=== PATIENT | male | born 1950 | race Caucasian/White ===

== ENCOUNTER 2017-04-28 00:38 | Emergency (ER) | payer MEDICARE, OTHER ==
[~2017-04-28] VITALS: Ht 165.1 cm; Wt 125.0 kg
[~2017-04-28 00:38] MED LIST: DESM0.2T OR; DIVA500 OR; LEVO50TA48 PO; LEXA20TA PO; PROP20TA3 PO; SIMV20TA OR; SODI1 PO; SPIR25TA PO; TRIH2 PO
[2017-04-28 00:44] VITALS: BP 151/80; PULSE 65; RESP 18; TEMP 97.5; O2SAT 98
[2017-04-28] MEDS ORDERED: LOTR1CRE3 TOPICAL (01:28)
[2017-04-28] MEDS ORDERED: [UNRECOGNIZED DRUG - OTHER] TOPICAL (01:28)
[2017-04-28] MEDS ORDERED: BACT800T5 PO (01:29)
[2017-04-28] MEDS ORDERED: DOXY100C PO (01:29)
--- NOTE | 2017-04-28 01:29 | PD ---
HPI Chief Complaint: Complaint Time Seen by Provider: 01:10 Travel History International Travel<30 days: No Contact w/Intl Traveler<30days: No Traveled to known affect area: No History of Present Illness HPI 67-year-old male complains of painful in the groin area. Patient states that the symptoms started this afternoon. Patient states that he has a rash around the scrotum area for the past few days. Patient states that the nurse put Desitin cream on it. Patient states that he has increasing itching and pain after the cream was put on today. Patient denies any fever chills. Patient denies any problem urinating. [facility] PFSH Past Medical History Bipolar Disorder: Yes Anxiety: Yes Depression: Yes High Cholesterol: Yes Diabetes: Yes Patient Takes Glucophage: Yes Diminished Hearing: No Gastrointestinal Disorders: Yes (GALLSTONES, CONSTIPATION ) Genitourinary: Yes (RECURRENT UTI'S AND BPH ) Hypertension: Yes Neurologic: Yes (BPH) Psychiatric: Yes (PSYCHOSIS) Respiratory: Yes (dyspnea) Immunizations Current: No Thyroid Disease: Yes (HYPOTHYrOIDISM) Past Surgical History Neurologic Surgery: No Other Surgery: Yes Social History Alcohol Use: No Tobacco Use: No Substance Use: No Allergies-Medications (Allergen,Severity, Reaction): Coded Allergies: No Known Allergies (Verified , 06/28/15) Reported Meds & Prescriptions Reported Meds & Active Scripts Active Reported Sodium Chloride 1000 Mg Tab (Sodium Chloride) 1 Gm Tab 1 Gm PO DAILY Spironolactone 25 Mg Tab 25 Mg PO BID Artane (Trihexyphenidyl HCl) 2 Mg Tab 2 Mg PO Simvastatin 20 Mg Tab 20 Mg OR DAILY Propranolol (Propranolol HCl) 20 Mg Tab 20 Mg PO TID Lexapro (Escitalopram Oxalate) 20 Mg Tab 20 Mg PO DAILY Levothroid (Levothyroxine Sodium) 50 Mcg Tab 50 Mcg PO DAILY Divalproex Sodium 500 Mg Tab 500 Mg OR DAILY Desmopressin Acetate 0.2 Mg Tab 0.2 Mg OR DAILY Review of Systems General / Constitutional: No: Fever Eyes: No: Visual changes HENT: No: Headaches Cardiovascular: No: Chest Pain or Discomfort Respiratory: No: Shortness of Breath Gastrointestinal: No: Abdominal Pain Genitourinary: No: Dysuria Musculoskeletal: No: Pain Skin: No Rash Neurologic: No: Weakness Psychiatric: No: Depression Endocrine: No: Polydipsia Hematologic/Lymphatic: No: Easy Bruising Physical Exam Narrative GENERAL: Well-nourished, well-developed patient. SKIN: Focused skin assessment warm/dry. HEAD: Normocephalic. EYES: No scleral icterus. No injection or drainage. NECK: Supple, trachea midline. No JVD or lymphadenopathy. CARDIOVASCULAR: Regular rate and rhythm without murmurs, gallops, or rubs. RESPIRATORY: Breath sounds equal bilaterally. No accessory muscle use. GASTROINTESTINAL: Abdomen soft, non-tender, nondistended. MUSCULOSKELETAL: No cyanosis, or edema. BACK: Nontender without obvious deformity. No CVA tenderness. exam: Patient has a red moist rash on the inguinal area and scrotum area. Mild tenderness on palpation. Mild increased in redness and heat noted. No induration and no discharge. No tenderness on palpation peroneal area. Data Data Last Documented VS Vital Signs Date Time Temp Pulse Resp B/P (MAP) Pulse Ox O2 Delivery O2 Flow Rate FiO2 04/28/17 00:44 97.5 65 18 151/80 (103) 98 Orders Orders Clotrimazole 1% Cream (Lotrimin 1% Cream (04/28/17 01:30) Sulfamet-Trimeth Ds 800-160 Mg (Bactrim (04/28/17 01:30) Doxycycline (Vibratab) (04/28/17 01:30) MDM Medical Decision Making Medical Screen Exam Complete: Yes Emergency Medical Condition: Yes Differential Diagnosis Differential diagnosis including tinea cruris, cellulitis. No evidence of Georgiana's gangrene at this point. Narrative Course 67-year-old male with a red moist rash in the groin area with tenderness on palpation. Lotrimin cream applied. Bactrim DS one tablet by mouth given. Doxycycline 100 mg by mouth given. Diagnosis Primary Impression: Cellulitis, scrotum Additional Impression: Tinea cruris Patient Instructions: General Instructions Additional Instructions: Lotrimin cream daily. Zeosorb as directed. Bactrim DS and doxycycline as directed. Follow-up with personal physician. Return if worse. Med/Other Pt SpecificInfo: Prescription(s) given Scripts Doxycycline Hyclate (Doxycycline Hyclate) 100 Mg Cap 100 MG PO BID for Infection, #20 CAP 0 Refills Prov: Aj Cleaning MD 04/28/17 Sulfamethoxazole-Trimethoprim (Bactrim DS) 800-160 Mg Tab 1 TAB PO BID for Infection, #20 TAB 0 Refills Prov: Aj Cleaning MD 04/28/17 [Zeosorb Powder] No Conflict Check 1 APPL TOPICAL DAILY, #1 Prov: Aj Cleaning MD 04/28/17 Butenafine Topical (Lotrimin Ultra Topical) 1% Cream 1 APPLIC TOPICAL DAILY for Infection, #1 TUBE 0 Refills Apply to: Prov: Aj Cleaning MD 04/28/17 Disposition: 01 DISCHARGE HOME Condition: Stable Aj Cleaning MD Apr 28, 2017 01:29
[2017-04-28] MEDS ORDERED: SULFAMETHOXAZOLE-TRIMETHOPRIM DS 800-160 MG TAB PO ONE (01:30)
[2017-04-28] MEDS ORDERED: DOXYCYCLINE HYCLATE 100 MG TAB PO ONE (01:30)
[2017-04-28] MEDS ORDERED: CLOTRIMAZOLE 1% CREAM 15 GM TOPICAL ONE (01:30)
[2017-04-28 02:58] VITALS: BP 142/77; PULSE 58; RESP 18; TEMP 98.2; O2SAT 98
== END 2017-04-28 03:02 | disposition home or self-care (01) ==
LOC: PHED 00:38
DX: N49.2 Inflammatory disorders of scrotum (principal); B35.6 Tinea cruris; F31.9 Bipolar disorder, unspecified; E78.00 Pure hypercholesterolemia, unspecified; E11.9 Type 2 diabetes mellitus without complications; I10 Essential (primary) hypertension; E03.9 Hypothyroidism, unspecified
CPT/HCPCS: 99283